=== PATIENT | female | born 1965 | race Caucasian/White ===

== ENCOUNTER 2019-05-20 15:04 | Outpatient (CLI) | payer OTHER ==
[~2019-05-20] VITALS: Ht 170.2 cm; Wt 81.6 kg
[~2019-05-20 15:04] MED LIST: CRESTOR20 MG PO; SYNTHROID125 MCG; TOPROL XL25 MG PO
== END 2019-05-20 15:20 | disposition home or self-care (01) ==
LOC: OFIC 805 15:04
DX: H93.11 Tinnitus, right ear (principal)

== ENCOUNTER 2025-05-12 06:00 | Day surgery (SDC) | payer OTHER ==
[2025-05-06 11:10] VITALS: BP 114/87
[~2025-05-12] VITALS: Ht 165.1 cm; Wt 83.0 kg
[~2025-05-12 06:00] MED LIST changes: +IRBESARTAN-HCT1 EACH PO; +LIPITOR20 MG PO; +PLAVIX75 MG PO; -SYNTHROID125 MCG; +SYNTHROID125 MCG PO
[2025-05-12] MEDS ORDERED: POVIDONE-IODINE 118 ML BOTT TOP ONE (11:43)
[2025-05-12] MEDS ORDERED: IBU600 MG PO (13:11)
== END 2025-05-12 16:00 | disposition home or self-care (01) ==
LOC: CIR.AMB 06:00
PROVIDERS: ATTEND Obstetrics & Gynecology Gynecology
DX: N84.0 Polyp of corpus uteri (principal); N95.0 Postmenopausal bleeding